=== PATIENT | female | born 1965 | race African-American/Black ===

== ENCOUNTER 2018-04-03 01:46 | Inpatient (IN) ==
[2018-04-03] MEDS ORDERED: ONDANSETRON 4 MG/2 ML VIAL IV STA (02:38)
[2018-04-03] MEDS ORDERED: MORPHINE 4 MG/1 ML VIAL IV STA ×2 (02:38→04:59)
[2018-04-03] MEDS ORDERED: PIPERACILLIN/TAZOBACTAM 3,375 MG in SODIUM CHLORIDE 0.9% 100 ML IV STA (03:06)
[2018-04-03 04:10] LABS: Basophils % 0.5 % (0.0-0.8); Eosinophils # 0.1 10*3/uL (0.0-0.87); Eosinophils % 0.7 % (0.00-10.9); Hematocrit 27.9 VOL% (35.7-47.0); Hemoglobin 9.7 GM/DL (12.0-16.0); Immature Granulocytes % 1.1 %; Immature Granulocytes Absolute 0.08 #; Lymphocytes # 1.8 10*3/uL (1.4-4.0); Lymphocytes % 23.6 % (21.3-54.2); Mean Corpuscular HGB Conc 34.8 GM/DL (32-36); Mean Corpuscular Hemoglobin 30 PG (27-34); Mean Corpuscular Volume 86.6 FL (87-102); Mean Platelet Volume 9.3 FL (9.6-12.0); Monocytes # 0.3 10*3/uL (0.11-0.8); Monocytes % 3.7 % (1.7-12.7); Neutrophils # 5.3 10*3/uL (1.4-7.4); Neutrophils % 70.4 % (38.7-73.9); Platelet Count 299 T/CUMM (130-400); Red Blood Count 3.22 MC/CUMM (3.8-5.5); Red Cell Distribution Width 12.2 % (9.3-17.3); White Blood Count 7.5 T/CUMM (4-12)
[2018-04-03 04:33] LABS: Alanine Aminotransferase 14 U/L (13-56); Albumin 2.6 G/DL (3.4-5.0); Alkaline Phosphatase 70 U/L (45-117); Aspartate Amino Transferase 13 U/L (0-37); Bilirubin,Total < 0.39 MG/DL (0.2-1.0); Blood Urea Nitrogen 13 MG/DL (7-18); Calcium 8.2 MG/DL (8.5-10.1); Glucose 114 MG/DL (74-106); Potassium 2.8 MMOL/L (3.5-5.1); Sodium 143 MMOL/L (136-145)
[2018-04-03] MEDS ORDERED: ONDANSETRON 4 MG/2 ML VIAL IV PRN (05:04)
[2018-04-03] MEDS ORDERED: DEXTROSE 5% LACTATED RINGERS 1,000 ML IV SCH (05:30)
[2018-04-03] MEDS ORDERED: POTASSIUM CHLORIDE RIDER 10 MEQ in PREMIX 1 EACH IV PRN (06:41)
[2018-04-03] MEDS: POTASSIUM CHLORIDE RIDER 10 MEQ in PREMIX 1 EACH IV SCH ×6 (07:25→18:23)
[2018-04-03] MEDS: MORPHINE 4 MG/1 ML VIAL IV PRN (09:52)
[2018-04-03] MEDS: ONDANSETRON 4 MG/2 ML VIAL IV PRN ×2 (09:52→16:32)
[2018-04-03 10:55] LABS: Apearance,Urine CLEAR (Clear); Bilirubin,Urine Negative (Negative); Blood, Urine Negative (Negative); Glucose,Urine (UA) Negative (Negative); Ketones,Urine Negative (Negative); Mucus,Urine Occasional /LPF (Occasional); Nitrite,Urine Negative (Negative); Protein,Urine Negative; RBC,Urine 1 /HPF (0-4); Squamous Epithelial Cell,Urine Occasional /HPF (0-10); Urine Color Yellow (Yellow); Urine Urobilinogen < 2.0 EU/DL (0.2-1.0); WBC,Urine 1 /HPF (0-6)
[2018-04-03] MEDS ORDERED: cefOXitin 2,000 MG in SYRINGE 1 EACH IV ONE (12:46)
[2018-04-03] MEDS: ENOXAPARIN 40 MG/0.4 ML SYRINGE SUBCUT SCH (13:49)
[2018-04-03] MEDS: LACTATED RINGERS 1,000 ML IV SCH ×2 (16:11→16:32)
[2018-04-03] MEDS: PRAMOXINE/HYDROCORTISONE RECTAL FOAM 10 GM CAN RECTAL SCH ×2 (17:50→21:00)
[2018-04-04] MEDS: MORPHINE 4 MG/1 ML VIAL IV PRN ×4 (00:09→21:45)
[2018-04-04] MEDS: LACTATED RINGERS 1,000 ML IV SCH ×2 (05:20→15:40)
[2018-04-04 06:31] LABS: Calcium 8.4 MG/DL (8.5-10.1); Osmolality,Calculated 284.8 MOS/KG (273-304); Potassium 3.3 MMOL/L (3.5-5.1)
[2018-04-04] MEDS ORDERED: TISSUE ADHESIVE 1 EACH APPLICATOR TOP ONE (06:38)
[2018-04-04] MEDS ORDERED: LIDOCAINE 1%/EPI INJ 20 ML VIAL ONE (06:39)
[2018-04-04] MEDS ORDERED: hydrOXYzine HCL 25 MG TABLET PO PRN (08:59)
[2018-04-04] MEDS ORDERED: diphenhydrAMINE CAP 25 MG CAPSULE PO PRN (08:59)
[2018-04-04] MEDS ORDERED: ASPIRIN PO PRN (08:59)
[2018-04-04] MEDS ORDERED: CAFFEINE PO PRN (08:59)
[2018-04-04] MEDS ORDERED: ALBUTEROL 2.5 MG/3 ML NEB RESP TX PRN (09:00)
[2018-04-04] MEDS ORDERED: NON-FORMULARY MEDICATION (Cod Liver Oil [Cod Liver Oil] 1 EACH) PO SCH (09:00)
[2018-04-04] MEDS ORDERED: PHENYLEPHRINE 10 MG/1 ML VIAL IV ONE (09:08)
[2018-04-04] MEDS ORDERED: ONDANSETRON 4 MG/2 ML VIAL ONE (09:08)
[2018-04-04] MEDS ORDERED: DEXAMETHASONE 10 MG/1 ML VIAL ONE (09:08)
[2018-04-04] MEDS ORDERED: KETOROLAC 30 MG/1 ML VIAL ONE (09:08)
[2018-04-04] MEDS ORDERED: PROPOFOL 200 MG/20 ML VIAL IV ONE (09:08)
[2018-04-04] MEDS ORDERED: fentaNYL 100 MCG/2 ML VIAL ONE (09:08)
[2018-04-04] MEDS ORDERED: SEVOFLURANE 1 UNIT/15 MINUTE INH ONE (09:08)
[2018-04-04] MEDS ORDERED: MIDAZOLAM 2 MG/2 ML VIAL ONE (09:08)
[2018-04-04] MEDS ORDERED: ROCURONIUM 100 MG/10 ML VIAL IV ONE (09:09)
[2018-04-04] MEDS ORDERED: ACETAMINOPHEN 1,000 MG/100 ML VIAL IV ONE (09:09)
[2018-04-04] MEDS ORDERED: GLYCOPYRROLATE 0.4 MG/2 ML VIAL ONE (09:09)
[2018-04-04] MEDS ORDERED: NEOSTIGMINE 10 MG/10 ML VIAL ONE (09:09)
[2018-04-04] MEDS ORDERED: LACTATED RINGERS 1,000 ML IV ONE (09:09)
[2018-04-04] MEDS ORDERED: ESMOLOL 100 MG/10 ML VIAL IV ONE (09:13)
[2018-04-04 09:27] LABS: Basophils # 0.1 10*3/uL (0.0-0.2); Basophils % 0.9 % (0.0-0.8); Eosinophils # 0.1 10*3/uL (0.0-0.87); Eosinophils % 1.7 % (0.00-10.9); Hematocrit 29.7 VOL% (35.7-47.0); Hemoglobin 9.9 GM/DL (12.0-16.0); Immature Granulocytes % 0.6 %; Immature Granulocytes Absolute 0.04 #; Lymphocytes # 3.1 10*3/uL (1.4-4.0); Lymphocytes % 48.6 % (21.3-54.2); Mean Corpuscular HGB Conc 33.3 GM/DL (32-36); Mean Corpuscular Hemoglobin 30 PG (27-34); Mean Corpuscular Volume 88.4 FL (87-102); Monocytes # 0.4 10*3/uL (0.11-0.8); Monocytes % 5.5 % (1.7-12.7); Neutrophils # 2.7 10*3/uL (1.4-7.4); Neutrophils % 42.7 % (38.7-73.9); Platelet Count 351 T/CUMM (130-400); Red Blood Count 3.36 MC/CUMM (3.8-5.5); Red Cell Distribution Width 12.5 % (9.3-17.3); White Blood Count 6.4 T/CUMM (4-12)
[2018-04-04] MEDS ORDERED: MEPERIDINE 25 MG/1 ML VIAL ONE (09:27)
[2018-04-04] MEDS ORDERED: MEPERIDINE 25 MG/1 ML VIAL IV PRN (09:28)
[2018-04-04 09:30] LABS: Basophils # 0.1 10*3/uL (0.0-0.2); Basophils % 0.7 % (0.0-0.8); Eosinophils # 0.1 10*3/uL (0.0-0.87); Eosinophils % 0.6 % (0.00-10.9); Hematocrit 30.3 VOL% (35.7-47.0); Hemoglobin 10.4 GM/DL (12.0-16.0); Lymphocytes # 2.2 10*3/uL (1.4-4.0); Lymphocytes % 21.1 % (21.3-54.2); Mean Corpuscular HGB Conc 34.3 GM/DL (32-36); Mean Corpuscular Hemoglobin 30 PG (27-34); Mean Corpuscular Volume 88.3 FL (87-102); Mean Platelet Volume 9.3 FL (9.6-12.0); Monocytes # 0.2 10*3/uL (0.11-0.8); Monocytes % 2.1 % (1.7-12.7); Neutrophils # 7.8 10*3/uL (1.4-7.4); Neutrophils % 74.5 % (38.7-73.9); Platelet Count 338 T/CUMM (130-400); Red Blood Count 3.43 MC/CUMM (3.8-5.5); Red Cell Distribution Width 12.4 % (9.3-17.3); White Blood Count 10.4 T/CUMM (4-12)
[2018-04-04] MEDS ORDERED: CALCIUM CARBONATE CHEW 500 MG TABLET PO PRN (09:30)
[2018-04-04 10:01] LABS: Calcium 8.6 MG/DL (8.5-10.1); Osmolality,Calculated 285.1 MOS/KG (273-304); Potassium 3.6 MMOL/L (3.5-5.1)
[2018-04-04] MEDS: amLODIPine 10 MG TABLET PO SCH (10:55)
[2018-04-04] MEDS: TOPIRAMATE 25 MG TABLET PO SCH ×2 (10:55→20:36)
[2018-04-04] MEDS: MULTIVITAMIN (BEROCCA) TABLET PO SCH (10:55)
[2018-04-04] MEDS: LORATADINE 10 MG TABLET PO SCH (10:55)
[2018-04-04] MEDS: LINACLOTIDE 145 MCG CAPSULE PO SCH (10:56)
[2018-04-04] MEDS: ENOXAPARIN 40 MG/0.4 ML SYRINGE SUBCUT SCH (10:57)
[2018-04-04] MEDS: PRAMOXINE/HYDROCORTISONE RECTAL FOAM 10 GM CAN RECTAL SCH ×4 (10:59→20:37)
[2018-04-04] MEDS: LETROZOLE 2.5 MG TABLET PO SCH (20:36)
[2018-04-04] MEDS: ALPRAZolam 0.5 MG TABLET PO SCH (20:37)
[2018-04-04] MEDS ORDERED: EVEROLIMUS PO SCH (21:00)
[2018-04-05] MEDS: MORPHINE 4 MG/1 ML VIAL IV PRN ×4 (01:20→21:31)
[2018-04-05] MEDS: LACTATED RINGERS 1,000 ML IV SCH ×2 (02:13→09:58)
[2018-04-05] MEDS: LEVOTHYROXINE 100 MCG TABLET PO SCH (05:36)
[2018-04-05 07:03] LABS: Basophils % 0.2 % (0.0-0.8); Hematocrit 27.2 VOL% (35.7-47.0); Hemoglobin 9.3 GM/DL (12.0-16.0); Immature Granulocytes % 1.6 %; Immature Granulocytes Absolute 0.17 #; Lymphocytes # 2.9 10*3/uL (1.4-4.0); Lymphocytes % 26.9 % (21.3-54.2); Mean Corpuscular HGB Conc 34.2 GM/DL (32-36); Mean Corpuscular Hemoglobin 30 PG (27-34); Mean Corpuscular Volume 87.2 FL (87-102); Mean Platelet Volume 9.7 FL (9.6-12.0); Monocytes # 0.5 10*3/uL (0.11-0.8); Monocytes % 4.2 % (1.7-12.7); Neutrophils # 7.2 10*3/uL (1.4-7.4); Neutrophils % 67.1 % (38.7-73.9); Platelet Count 325 T/CUMM (130-400); Red Blood Count 3.12 MC/CUMM (3.8-5.5); Red Cell Distribution Width 12.2 % (9.3-17.3); White Blood Count 10.7 T/CUMM (4-12)
[2018-04-05 07:10] LABS: Calcium 8.7 MG/DL (8.5-10.1); Osmolality,Calculated 282.1 MOS/KG (273-304); Potassium 3.4 MMOL/L (3.5-5.1)
[2018-04-05] MEDS: LINACLOTIDE 145 MCG CAPSULE PO SCH (08:51)
[2018-04-05] MEDS: TOPIRAMATE 25 MG TABLET PO SCH ×2 (08:52→20:37)
[2018-04-05] MEDS: MULTIVITAMIN (BEROCCA) TABLET PO SCH (08:52)
[2018-04-05] MEDS: LORATADINE 10 MG TABLET PO SCH (08:52)
[2018-04-05] MEDS: amLODIPine 10 MG TABLET PO SCH (08:53)
[2018-04-05] MEDS: PRAMOXINE/HYDROCORTISONE RECTAL FOAM 10 GM CAN RECTAL SCH ×4 (08:54→20:41)
[2018-04-05] MEDS: ENOXAPARIN 40 MG/0.4 ML SYRINGE SUBCUT SCH (08:54)
[2018-04-05] MEDS: CHOLECALCIFEROL 1,000 UNIT TABLET PO SCH (09:00)
[2018-04-05] MEDS: LETROZOLE 2.5 MG TABLET PO SCH (20:36)
[2018-04-05] MEDS: ALPRAZolam 0.5 MG TABLET PO SCH (20:36)
[2018-04-06] MEDS: LEVOTHYROXINE 100 MCG TABLET PO SCH (05:48)
[2018-04-06 08:01] LABS: Basophils # 0.1 10*3/uL (0.0-0.2); Basophils % 0.8 % (0.0-0.8); Eosinophils # 0.1 10*3/uL (0.0-0.87); Eosinophils % 1.5 % (0.00-10.9); Hematocrit 31.4 VOL% (35.7-47.0); Hemoglobin 10.5 GM/DL (12.0-16.0); Immature Granulocytes % 1.4 %; Immature Granulocytes Absolute 0.12 #; Lymphocytes % 56.6 % (21.3-54.2); Mean Corpuscular HGB Conc 33.4 GM/DL (32-36); Mean Corpuscular Hemoglobin 30 PG (27-34); Mean Corpuscular Volume 88.2 FL (87-102); Mean Platelet Volume 10.3 FL (9.6-12.0); Monocytes # 0.4 10*3/uL (0.11-0.8); Monocytes % 4.1 % (1.7-12.7); NRBC # 0.02 10*3/uL; Neutrophils # 3.1 10*3/uL (1.4-7.4); Neutrophils % 35.6 % (38.7-73.9); Platelet Count 252 T/CUMM (130-400); Red Blood Count 3.56 MC/CUMM (3.8-5.5); Red Cell Distribution Width 12.5 % (9.3-17.3); White Blood Count 8.8 T/CUMM (4-12)
[2018-04-06 08:16] VITALS: BP 121/75
[2018-04-06 08:25] LABS: Eosinophils 4 % (0-10); Hypochromasia 1+; Lymphocytes 57 % (20-55); Nucleated Red Blood Cells 1 (0-5); Ovalocytes Slight; Platelet Estimate Adequate; Segmented Neutrophils 31 % (50-85); Total Cells Counted 100
[2018-04-06 08:26] LABS: Atypical Lymphocytes Few
[2018-04-06 08:37] LABS: Calcium 7.9 MG/DL (8.5-10.1); Osmolality,Calculated 283.8 MOS/KG (273-304); Potassium 3.6 MMOL/L (3.5-5.1)
[2018-04-06] MEDS: ENOXAPARIN 40 MG/0.4 ML SYRINGE SUBCUT SCH (09:41)
[2018-04-06] MEDS: CHOLECALCIFEROL 1,000 UNIT TABLET PO SCH (09:42)
[2018-04-06] MEDS: LINACLOTIDE 145 MCG CAPSULE PO SCH (09:43)
[2018-04-06] MEDS: TOPIRAMATE 25 MG TABLET PO SCH (09:43)
[2018-04-06] MEDS: MULTIVITAMIN (BEROCCA) TABLET PO SCH (09:44)
[2018-04-06] MEDS: PRAMOXINE/HYDROCORTISONE RECTAL FOAM 10 GM CAN RECTAL SCH ×2 (09:44→13:58)
[2018-04-06] MEDS: LORATADINE 10 MG TABLET PO SCH (09:44)
[2018-04-06] MEDS: amLODIPine 10 MG TABLET PO SCH (09:44)
[2018-04-06] MEDS ORDERED: HEPARIN LOCK FLUSH 500 UNIT/5 ML SYRINGE IV PRN (11:33)
[2018-04-06] MEDS ORDERED: HEPARIN LOCK FLUSH 500 UNIT/5 ML SYRINGE IV SCH (12:00)
== END 2018-04-06 14:24 | disposition home or self-care (01) | DRG 419 ==
LOC: N.ED 01:46 → N.EDINP 05:04 → N.2E 05:51
PROVIDERS: ADMIT Surgery; ATTEND Surgery
PROC: LAPCHOL (2018-04-04 07:29)